=== PATIENT | female | born 1960 | race Caucasian/White ===

== ENCOUNTER 2019-04-08 22:20 | Emergency (ER) | payer OTHER, SELFPAY ==
--- NOTE | ~2019-04-08 | XR_ITS ---
EXAMINATION: XR chest 1V portable EXAM DATE: 04/08/2019 23:23 INDICATION: Confusion. Altered mental status. Recent cold. TECHNIQUE: Portable AP frontal chest x-ray was obtained. Comparison is made to prior examination from 11/01/2014. FINDINGS: The lungs are clear. There are no pleural effusions. Cardiomediastinal silhouette is norm al. There is no pneumothorax suspected. There is mild to moderate bilateral acromioclavicular join t primary osteoarthritis. IMPRESSION: Unremarkable chest x-ray exam. Reviewed, dictated and finalized at location A. ICAL MASSAGE THERAPIST
--- NOTE | ~2019-04-08 | CT_ITS ---
EXAMINATION: CT cervical spine wo con EXAM DATE: 04/08/2019 23:22 INDICATION: Fall, head injury. TECHNIQUE: Spiral CT of the cervical spine was performed without contrast. Axial images were reviewe d. Coronal and sagittal reformatted images were also reviewed. The dose-length product (DLP) for thi s examination was 155.67 mGy-cm. The exposure was tailored according to patient size (auto mA exposu re control), and iterative reconstruction (ASIR) was used as additional dose reduction technique. Th ere is no prior study for comparison. FINDINGS: Advanced left facet arthropathy C2-5. There is no evidence of acute cervical fracture. Th e odontoid process is intact. Pre-dens space is normal. Prevertebral soft tissue is normal. There are no soft tissue abnormalities identified. There is no disc space widening or traumatic vertebral body subluxation suspected. C5-6 disc replacement. Moderate disc disease at C6-7, mild at C4-5. Left -sided neural foraminal stenosis at C3-4 and 4-5. A detailed level by level evaluation of spondylosi s can be added as addendum if requested. IMPRESSION: 1. No acute cervical fracture. 2. Hardware, spondylosis. Reviewed, dictated and finalized at location A. ING DECORATOR
--- NOTE | ~2019-04-08 | CT_ITS ---
EXAMINATION: CT brain wo con EXAM DATE: 04/08/2019 23:22 INDICATION: Fall. Head injury. Confusion. TECHNIQUE: Spiral CT of the head was performed without contrast. Axial, coronal and sagittal images were reviewed. The dose-length product (DLP) for this examination was 605.33 mGy-cm. The exposure w as tailored according to patient size, and iterative reconstruction (ASIR) was used as additional dos e reduction technique. Comparison is made to prior examination from 03/22/2005. FINDINGS: There is no acute intraparenchymal hemorrhage. No evidence of intraparenchymal brain mass lesion. No evidence of acute infarction. There is no mass effect or midline shift. The ventricles are normal in size. There are no extra-axial collections. There are no acute calvarial fractures. T he orbits are unremarkable. Soft tissue is unremarkable. There is moderate to large amount of fluid in the right sphenoid sinus. There is mild to moderate sphenoid and ethmoid mucoperiosteal thickenin g. Mastoid air cells are well aerated. IMPRESSION: 1. No acute intracranial findings. 2. Right sphenoid fluid. Possible sinusitis. Reviewed, dictated and finalized at location A. STERED NURSE RENAL
[2019-04-08 22:20] VITALS: BP 106/75; PULSE 97; RESP 22; TEMP 36.3; O2SAT 94
--- NOTE | 2019-04-08 22:25 | ED.AMS ---
HPI - Altered Mental Status General Chief Complaint: Altered Mental Status Stated Complaint: altered level cons. Time Seen by Provider: 04/08/19 22:20 Source: family, EMS and RN notes reviewed Mode of arrival: EMS Limitations: intoxication History of Present Illness HPI narrative: Pt is a 59 y/o female who presents to the ED, via EMS from home, with c/o decreased responsiveness that began earlier tonight. Per EMS, pt was found unresponsive on the floor in her office. Pt's spouse states pt has a tendency to drink and has a hx of alcohol abuse. Pt's spouse has been sick and in bed all day. Pt's spouse found the pt on the floor. Pt reports drinking a bottle of vodka, but then later denies drinking EtOH. Per EMS, pt is code stroke negative, but she does have slurred speech. Per pt's spouse, pt had a fever in the 101s this weekend and he states that she last had a fever on Sunday (04/06/19). He states he last saw the pt around 7:30 PM and he states that she seemed fine. He denies the pt receiving a flu shot this year. Pt's spouse states he could not get much out of her while trying to talk to her. Pt's spouse also reports the pt having a cough and rhinorrhea, but denies suicidal ideation. HPI is limited due to pt's intoxication. complaint: decreased responsiveness Onset (ago): hour(s) Context: alcohol abuse Associated symptoms: cough and other (rhinorrhea, slurred speech) Related Data Allergies Allergy/AdvReac Type Severity Reaction Status Date / Time Penicillins Allergy Mild Hives / Verified 04/01/19 09:47 Red Face prochlorperazine AdvReac Mild Hyperactive Verified 04/01/19 09:47 Review of Systems Review of Systems: ROS unobtainable: other (limited due to pt's intoxication) Constitutional: Constitutional: Denies fever(s) ENT: Reports other (rhinorrhea) Respiratory: Respiratory: Reports cough Neurologic: Reports Abnormal speech present (slurred) and Reports other (decreased level of consciousness) Psychiatric: Psychiatric: Denies suicidal ideation [facility] Past Medical History Medical History (Updated 04/09/19 @ 00:36 by Arlene Reyes MD) Alcohol abuse Depression Essential (primary) hypertension History of vaginal delivery x3 Mixed hyperlipidemia Vitamin deficiency, unspecified Surgical History Surgical History (Updated 04/08/19 @ 22:44 by Griselda Zacarias) History of back surgery History of dilation and curettage History of endometrial ablation Hx of appendectomy Hx of reduction mammoplasty Social History Social History Smoking status: Never smoker Second hand tobacco smoke exposure: Yes Alcohol intake: current Exam Narrative: Exam Narrative: GENERAL: Well-appearing, well-nourished, and in no acute distress. HEAD: Normocephalic, atraumatic EYES: PERRLA and EOMI, conjunctiva clear without discharge EARS: TM's clear bilaterally without erythema or dullness NOSE: Nares clear, no rhinorrhea or epistaxis THROAT:Mucous membranes moist, Oropharynx normal without erythema, exudate, peritonsillar swelling or fluctuance NECK: Supple, without lymphadenopathy or mass RESPIRATORY: No respiratory distress, Airway patent, Respirations non-labored, Clear to auscultation without rales, rhonchi or wheeze HEART: Regular rate and rhythm. No murmur heard. Normal peripheral pulses. ABDOMEN: Soft, nontender, nondistended, normal active bowel sounds. No masses. No rebound or guarding, No organomegaly. EXTREMITIES: No edema, normal strength with full range of motion. SKIN: Warm, dry, normal color without rash NEURO: Alert and oriented to person only. Slurred speech. CN 2-12 grossly intact. No focal deficits. PSYCH: Normal mood and affect. Course Reevaluation(s) Reevaluation #1: Patient is now able to answer all questions. Her speech is no longer slurred. I have discussed with her and patient has alcohol intoxication. Date: 04/09/19 Ti
--- NOTE | 2019-04-08 22:27 | ECG_ITS ---
Measurements Intervals [place] Rate: 90 P: 58 ME: 197 QRS: 12 QRSD: 78 T: 43 QT: 366 QTc: 448 Interpretive Statements SINUS RHYTHM INCOMPLETE RIGHT BUNDLE BRANCH BLOCK BASELINE ARTIFACT- I, II, AVR, AVL, AVF, V1-V6 BORDERLINE ECG Electronically Signed On 04-09-2019 6:59:28 DOGGER by Chato Bello D.O.
[2019-04-08] MEDS: SODIUM CHLORIDE 0.9% IV 1,000 ML 999 ML IV CONT (22:31)
[2019-04-08 22:47] LABS: Glucose Point of Care 99 (65-105)
[2019-04-08 22:56] LABS: Alveolar/Arterial O2 Gradient 41.3 mmHg; Base Excess ABG -2.9 mEq/l (+/-2.0); Carboxyhemoglobin 0.3 % THb (0-2.0); Fractional Inspired Oxygen 21 %; HCO3 ABG 21.5 mEq/l (22.0-26.0); Methemoglobin ABG 0.2 %THb (0-1.5); Oxygen Saturation ABG 92.9 % (95.0-100.0); PCO2 ABG 36.1 mmHg (35.0-45.0); PO2 ABG 65.2 mmHg (80.0-100.0); Reduced Hemoglobin 10.5 %THb (0-5.0); pH ABG 7.393 (7.350-7.450)
[2019-04-08 22:57] LABS: Modified Allen's Test Pass; Site Drawn RIGHT RADIAL
[2019-04-08 23:17] LABS: Immature Reticulocyte Fraction 6.8 % (3.0-15.9); Lactic Acid Reflex 1.1 mmol/L (0.7-2.1); Reticulocyte Hemoglobin Conten 33.3 pg (28.2-35.7); Reticulocyte Percent 1.14 % (0.7-4.3); Reticulocytes Absolute 0.04 B/L (32.2-175.7)
[2019-04-08 23:19] LABS: Add Urine Microscopic? NO; Appearance Urine Clear (Clear); Bilirubin Urine Negative (Negative); Blood Urine Negative (Negative); Color Urine Straw (Yellow); Glucose Urine UA Negative (Negative); Ketones Urine Negative (Negative); Leukocyte Esterase Ur Negative LEU/UL (Negative); Nitrate Urine Negative (Negative); Protein Urine Negative (Negative); Specific Grav Ur 1.005 (1.001-1.035); Urobilinogen Urine Negative mg/dL (<2.0)
[2019-04-08 23:19] LABS: Ammonia < 9 umol/L (9-30)
[2019-04-08 23:27] LABS: Basophils Percent Auto 0.7 % (0.2-1.2); Eosinophils Absolute Auto 0.1 K/mm3 (0-0.3); Eosinophils Percent Auto 1.5 % (0-4.4); Hemoglobin 12.3 g/dL (12.0-15.0); Immature Granulocyte Absolute 0.02 K/mm3 (0.00-0.031); Immature Granulocyte Percent A 0.3 % (0-0.5); Lymphocytes Absolute Auto 2.16 K/mm3 (0.9-3.2); Lymphocytes Percent Auto 36.2 % (18.3-44.2); Mean Corpuscular HGB Conc 33.2 g/dl (32-36); Mean Corpuscular Hemoglobin 31.8 pg (26-34); Mean Corpuscular Volume 95.6 fl (80-100); Mean Platelet Volume 9.8 fl (7.4-10.4); Monocytes Absolute Auto 0.5 K/mm3 (0.1-0.6); Monocytes Percent Auto 8.1 % (2.6-8.5); Neutrophils Absolute Auto 3.2 K/mm3 (1.3-6.7); Neutrophils Percent Auto 53.2 % (45.5-73.1); Platelet Count Result 288 k/mm3 (150-375); Red Blood Count 3.87 M/mm3 (4.2-5.4); Red Cell Distribution Width 12.6 % (11.5-14.5)
[2019-04-08 23:29] LABS: Benzodiazepines Screen Urine Negative (Negative)
[2019-04-08 23:33] LABS: Amphetamine Screen Urine Negative (Negative); Cannabinoid Screen Urine Negative (Negative); Cocaine Screen Urine Negative (Negative); Methadone Screen Urine Negative (Negative); Opiate Screen Urine Negative (Negative); Phencyclidine Screen Urine Negative (Negative)
[2019-04-08 23:34] LABS: Ethanol 322 mg/dL (<10)
[2019-04-08 23:35] VITALS: BP 103/59; PULSE 91; RESP 21; O2SAT 94
[2019-04-08 23:36] LABS: Barbiturate Screen Urine Negative (Negative)
[2019-04-09 00:05] LABS: Magnesium 2.1 mg/dL (1.6-2.3)
[2019-04-09 00:06] LABS: Alanine Aminotransferase 30 U/L (4-35); Albumin Level 4.1 g/dL (3.5-5.1); Alkaline Phosphatase 94 U/L (38-126); Aspartate Amino Transferase 34 U/L (14-36); Bilirubin,Total 0.2 mg/dL (0.2-1.3); Blood Urea Nitrogen 4 mg/dL (7-17); Calcium 8.5 mg/dL (8.4-10.2); Carbon Dioxide 26 mmol/L (22-30); Chloride 105 mmol/L (98-107); Estimated Glomerular Filt Rate > 60; Glucose 101 mg/dL (65-105); Partial Thromboplastin Time 28.6 SECONDS (22.3-36.8); Potassium 3.7 mmol/L (3.4-5.0); Prothrombin Time 12.8 Seconds (11.1-14.7); Sodium 146 mmol/L (137-145)
[2019-04-09 00:17] LABS: Troponin I < 0.012 ng/mL (0.000-0.034)
[2019-04-09 00:30] VITALS: BP 99/73; PULSE 91; RESP 20; O2SAT 98
[2019-04-09 01:43] VITALS: BP 105/77; PULSE 95; RESP 19; TEMP 37.1; O2SAT 94
== END 2019-04-09 01:45 | disposition home or self-care (01) ==
PROVIDERS: Emergency Provider General Practice; PCP Internal Medicine
DX: F10.129 Alcohol abuse with intoxication, unspecified (principal); Y90.8 Blood alcohol level of 240 mg/100 ml or more; E78.2 Mixed hyperlipidemia; I10 Essential (primary) hypertension; E56.9 Vitamin deficiency, unspecified; I45.10 Unspecified right bundle-branch block; M47.812 Spondylosis without myelopathy or radiculopathy, cervical region
CPT/HCPCS: 36415; 36600; 51701; 70450; 71045; 72125; 80053; 80307; 81003; 81025; 82140; 82375; 82805; 82948; 83050; 83605; 83735; 84484; 85025; 85046; 85610; 85730; 87804; 93005; 96361; 96365; 99284; J3411; J3475; J7030; J7121

== ENCOUNTER 2020-03-05 07:39 | Outpatient (CLI) | payer OTHER, SELFPAY ==
--- NOTE | ~2020-03-05 | MM_ITS ---
EXAMINATION: MM screening henrik BI w daniel HISTORY: Screening TECHNIQUE: Craniocaudal and mediolateral oblique 3-D tomosynthesis images were obtained and synthetic 2-D images were generated. CAD analysis was submitted and interpreted. COMPARISON: Comparison to multiple prior studies sequentially, with oldest reviewed study dated 11/05. BREAST PARENCHYMAL COMPOSITION: The breasts are heterogeneously dense, which may obscure small masses . FINDINGS: There is no evidence of suspicious mass, calcification, or architectural distortion to sugg est malignancy in either breast. There has been no suspicious interval change. IMPRESSION: 1. No mammographic evidence of malignancy. 2. Recommend routine screening mammography in one year. BI-RADS Category 1: Negative Reviewed, dictated and finalized at location A. CLE REPAIRMAN
== END 2020-03-05 07:40 | disposition home or self-care (01) ==
LOC: ANHIMG 07:41
PROVIDERS: PCP Internal Medicine; Visit Provider Obstetrics & Gynecology
DX: Z12.31 Encounter for screening mammogram for malignant neoplasm of breast (principal)
CPT/HCPCS: 77063; 77067

== ENCOUNTER 2020-06-25 12:33 | Outpatient (CLI) | payer OTHER, SELFPAY ==
--- NOTE | ~2020-06-25 | DEXA_ITS ---
Bone Density Report Name: Denae Jack Age: 60 Sex: Female Ethnicity: White Date of : 1960 Indication: osteopenia; monitoring treatment; parental hip fracture; Referring Provider: RAYMUNDO SIM Study: Bone densitometry was performed. Exam Date: June 25, 2020 Accession number: [id number] Bone Density: Region BMD T-score Z-score Classification AP Spine (L1-L4) 1.065 0.2 1.5 Normal Femoral Neck (Left) 0.546 -2.7 -1.5 Osteoporosis Total Hip (Left) 0.780 -1.3 -0.5 Osteopenia Total Hip Bilateral Avg 0.770 -1.4 -0.6 Osteopenia Femoral Neck (Right) 0.563 -2.6 -1.4 Osteoporosis Total Hip (Right) 0.759 -1.5 -0.6 Osteopenia World Health Organization criteria for BMD impression classify patients as: Normal (T-score at or above -1.0), Osteopenia (T-score between -1.0 and -2.5), or Osteoporosis (T-score at or below -2.5). 10-year Fracture Risk: FRAX not reported because: Some T-score for Spine Total or Hip Total or Femoral Neck at or below -2.5 Treated for osteoporosis Previous Exams: Region Exam Age BMD T-score BMD Change BMD Change Date g/cm2 vs Baseline vs Previous AP Spine(L1-L4) 06/25/2020 60 1.065 0.2 -0.073(-6.4%)* 0.020(1.9%) 01/11/2018 57 1.045 0.0 -0.092(-8.1%)* -0.092(-8.1%)* 12/17/2015 55 1.137 0.8 Total Hip(Left) 06/25/2020 60 0.780 -1.3 -0.006(-0.8%) -0.004(-0.5%) 01/11/2018 57 0.783 -1.3 -0.002(-0.3%) -0.002(-0.3%) 12/17/2015 55 0.786 -1.3 Total Hip(Right) 06/25/2020 60 0.759 -1.5 -0.008(-1.0%) 0.006(0.8%) 01/11/2018 57 0.753 -1.5 -0.013(-1.7%) -0.013(-1.7%) 12/17/2015 55 0.767 -1.4 *Denotes significance at 95% confidence level, LSC for AP Spine = 0.022 g/cm2, LSC for Total Hip = 0.027 g/cm2 Clinical Information Provided by Patient: Parent has had a hip fracture Is being treated for osteoporosis Has used the following medications: Boniva (i.e. ibandronate), Vitamin D, Calcium Patient maximum height was 59 Menopause Age: 52 Drinks caffeinated beverages Onset of menses at age 15 Number of children 3 Impression: The patient has osteoporosis, based on the Left Femoral Neck T-score. The patient has risk factors, including: parental hip fracture. No significant bone loss was observed. Discussion: PATIENT UNDER TREATMENT WITH NO SIGNIFICANT BMD LOSS SINCE LAST EXAM. In an untreated patient, BMD typically declines with age. A lack of decline or gain is usually a sign that tr
== END 2020-06-25 12:34 | disposition home or self-care (01) ==
LOC: ANHIMG 12:36
PROVIDERS: PCP Internal Medicine; Visit Provider Obstetrics & Gynecology
DX: Z78.0 Asymptomatic menopausal state (principal); M81.0 Age-related osteoporosis without current pathological fracture; M85.852 Other specified disorders of bone density and structure, left thigh; M85.851 Other specified disorders of bone density and structure, right thigh
CPT/HCPCS: 77080

== ENCOUNTER → 2021-03-02 02:09 | Outpatient (CLI) | payer OTHER, SELFPAY ==
[2021-03-02 19:36] LABS: SARS-CoV-2 RNA PCR Negative
== END ==
PROVIDERS: PCP Internal Medicine; Visit Provider Internal Medicine
DX: Z20.822 Contact with and (suspected) exposure to COVID-19 (principal)
CPT/HCPCS: C9803; U0003; U0005

== ENCOUNTER → 2021-04-29 13:00 | Outpatient (CLI) | payer OTHER, SELFPAY ==
--- NOTE | ~2021-04-29 | XR_ITS ---
XR chest 2V DATE: 04/29/2021 13:35 INDICATION: Pneumonia TECHNIQUE: PA and lateral views COMPARISON: 04/08/2019 portable AP chest FINDINGS: Normal heart size. No hilar or mediastinal enlargement. Minimal bibasilar atelectasis is suggested. No pulmonary infiltrate or consolidation, pleural effusion or pulmonary vascular congestion or pneumo thorax is noted otherwise. Interbody spinal fusion at C6-7. IMPRESSION: Minimal bibasilar atelectasis Reviewed, dictated and finalized at location A.
== END ==
PROVIDERS: Visit Provider Internal Medicine
DX: J18.9 Pneumonia, unspecified organism (principal)
CPT/HCPCS: 71046

== ENCOUNTER 2021-05-06 07:47 | Outpatient (CLI) | payer OTHER, SELFPAY ==
--- NOTE | ~2021-05-06 | US_ITS ---
EXAMINATION: US abdomen limited EXAM DATE: 05/06/2021 08:54 INDICATION: R79.89 - Other specified abnormal findings of blood chemi... TECHNIQUE: Multiple grayscale and Doppler images of the abdomen right upper quadrant were obtained (b y a technologist who performed the scan) and subsequently reviewed. Comparison is made to prior exami nation from 03/29/2007. FINDINGS: The pancreatic head and body are normal in appearance. The pancreatic tail is not visualized. The l iver has normal echogenicity and contour. There are no focal liver lesions identified. There is no evidence of intrahepatic biliary duct dilation. Portal venous flow was seen in the hepatopedal, nor mal direction and has normal Doppler waveform. No right-sided hydronephrosis. Common bile duct measures 4 mm, which is normal. The gallbladder wall is normal in thickness, with ex pected amount of distention. No sonographic evidence of pericholecystic fluid. There is no cholelit hiases. Technologist performing exam reports patient did not demonstrate sonographic Serra's sign. Please note that this sign is less reliable in patients who have received pain medication. IMPRESSION: 1. Unremarkable abdominal ultrasound exam. Reviewed, dictated and finalized at location D.
== END 2021-05-06 07:48 | disposition home or self-care (01) ==
LOC: ANHIMG 07:52
PROVIDERS: PCP Internal Medicine; Visit Provider Internal Medicine
DX: R79.89 Other specified abnormal findings of blood chemistry (principal)
CPT/HCPCS: 76705

== ENCOUNTER 2021-05-21 09:21 | Outpatient (CLI) | payer OTHER, SELFPAY ==
--- NOTE | ~2021-05-21 | MM_ITS ---
EXAMINATION: MM screening henrik BI w daniel HISTORY: Screening mammogram TECHNIQUE: Craniocaudal and mediolateral oblique 3-D tomosynthesis images were obtained and synthetic 2-D images were generated. CAD analysis was submitted and interpreted. COMPARISON: 03/05/2020, 06/15/2017, 03/19/2015 bilateral screening mammogram examinations BREAST PARENCHYMAL COMPOSITION: The breasts are heterogeneously dense, which may obscure small masses . FINDINGS: There is no evidence of suspicious mass, calcification, or architectural distortion to sugg est malignancy in either breast. There has been no suspicious interval change. IMPRESSION: 1. No mammographic evidence of malignancy. 2. Recommend routine screening mammography in one year. BI-RADS Category 1: Negative Reviewed, dictated and finalized at location A.
== END 2021-05-21 09:22 | disposition home or self-care (01) ==
PROVIDERS: PCP Internal Medicine; Visit Provider Obstetrics & Gynecology
DX: Z12.31 Encounter for screening mammogram for malignant neoplasm of breast (principal)
CPT/HCPCS: 77063; 77067

== ENCOUNTER 2022-08-11 07:35 | Outpatient (CLI) | payer OTHER, SELFPAY ==
--- NOTE | ~2022-08-11 | MM_ITS ---
EXAMINATION: MM screening henrik BI w daniel HISTORY: Screening mammogram, family history of breast cancer in her mother. TECHNIQUE: Craniocaudal and mediolateral oblique 3-D tomosynthesis images were obtained and synthetic 2-D images were generated. CAD analysis was submitted and interpreted. COMPARISON: 05/21/2021, 03/05/2020, 06/15/2017 BREAST PARENCHYMAL COMPOSITION: The breasts are heterogeneously dense, which may obscure small masses . FINDINGS: No suspicious mass, calcification, or architectural distortion are identified in either abelino ast to suggest malignancy. There has been no suspicious interval change. IMPRESSION: 1. No mammographic evidence of malignancy. 2. Recommend routine screening mammography in one year. BI-RADS Category 1: Negative Reviewed, dictated and finalized at location A.
--- NOTE | ~2022-08-11 | DEXA_ITS ---
Bone Density Report Name: FOZIA ALDRIDGE Age: 62 Sex: Female Ethnicity: White Date of : 1960 Indication: osteopenia; monitoring treatment; postmenopausal; asthma or emphysema; Referring Provider: RAYMUNDO SIM Study: Bone densitometry was performed. Exam Date: August 11, 2022 Accession number: [id number] Bone Density: Region BMD T-score Z-score Classification AP Spine(L1-L4) 1.087 0.4 1.8 Normal Femoral Neck (Left) 0.510 -3.1 -1.8 Osteoporosis Total Hip (Left) 0.734 -1.7 -0.7 Osteopenia Femoral Neck (Right) 0.562 -2.6 -1.3 Osteoporosis Total Hip (Right) 0.728 -1.8 -0.8 Osteopenia Total Hip Mean 0.731 -1.8 -0.8 Osteopenia World Health Organization criteria for BMD impression classify patients as: Normal (T-score at or above -1.0), Osteopenia (T-score between -1.0 and -2.5), or Osteoporosis (T-score at or below -2.5). 10-year Fracture Risk: FRAX not reported because: Some T-score for Spine Total or Hip Total or Femoral Neck at or below -2.5 Treated for osteoporosis Previous Exams: Region Exam Age BMD T-score BMD Change BMD Change Date g/cm2 vs Baseline vs Previous AP Spine (L1-L4) 08/11/2022 62 1.087 0.4 -0.050 (-4.4%) 0.022 (2.1%) 06/25/2020 60 1.065 0.2 -0.073 (-6.4%) 0.020 (1.9%) 01/11/2018 57 1.045 0.0 -0.092 (-8.1%) -0.092 (-8.1%) 12/17/2015 55 1.137 0.8 Total Hip(Left) 08/11/2022 62 0.734 -1.7 -0.051 (-6.6%) -0.045 (-5.8%) 06/25/2020 60 0.780 -1.3 -0.006 (-0.8%) -0.004 (-0.5%) 01/11/2018 57 0.783 -1.3 -0.002 (-0.3%) -0.002 (-0.3%) 12/17/2015 55 0.786 -1.3 Total Hip(Right) 08/11/2022 62 0.728 -1.8 -0.039 (-5.0%) -0.031 (-4.1%) 06/25/2020 60 0.759 -1.5 -0.008 (-1.0%) 0.006 (0.8%) 01/11/2018 57 0.753 -1.5 -0.013 (-1.7%) -0.013 (-1.7%) 12/17/2015 55 0.767 -1.4 *Denotes significance at 95% confidence level, LSC for AP Spine = 0.022 g/cm2, LSC for Total Hip = 0.027 g/cm2 Clinical Information Provided by Patient: Is being treated for osteoporosis Has used the following medications: Boniva (i.e. ibandronate), Vitamin D Has the following medical conditions: Asthma or Emphysema Patient maximum height was 58 Menopause Age: 53 Drinks caffeinated beverages Onset of menses at age 14 Number of children 3 Impression: The patient has osteoporosis, based on the Left Femoral Neck T-score. The BMD for the Total Hip(Left) decreased, changing by -5
== END 2022-08-11 07:36 | disposition home or self-care (01) ==
LOC: ANHIMG 07:38
PROVIDERS: PCP Family Medicine; Visit Provider Obstetrics & Gynecology
DX: Z12.31 Encounter for screening mammogram for malignant neoplasm of breast (principal); M81.0 Age-related osteoporosis without current pathological fracture; M85.852 Other specified disorders of bone density and structure, left thigh; M85.851 Other specified disorders of bone density and structure, right thigh
CPT/HCPCS: 77063; 77067; 77080

== ENCOUNTER 2024-01-09 07:44 | Outpatient (CLI) | payer OTHER, SELFPAY ==
--- NOTE | ~2024-01-09 | MM_ITS ---
EXAMINATION: MM screening henrik BI w daniel HISTORY: Screening TECHNIQUE: Craniocaudal and mediolateral oblique 3-D tomosynthesis images were obtained and synthetic 2-D images were generated. CAD analysis was submitted and interpreted. COMPARISON: Comparison to multiple prior studies sequentially, with oldest reviewed study dated . . BREAST PARENCHYMAL COMPOSITION: Dense: The breasts are heterogeneously dense, which may obscure small masses FINDINGS: There are changes of bilateral previous breast reduction surgery. There is no evidence of s uspicious mass, calcification, or architectural distortion to suggest malignancy in either breast. Th ere has been no suspicious interval change. IMPRESSION: 1. No mammographic evidence of malignancy. 2. Recommend routine screening mammography in one year. BI-RADS Category 1: Negative Reviewed, dictated and finalized at location B. MODELING SPECIALIST
== END 2024-01-09 07:45 | disposition home or self-care (01) ==
LOC: ANHIMG 07:46
PROVIDERS: PCP Nurse Practitioner Family; Visit Provider Nurse Practitioner Family
DX: Z12.31 Encounter for screening mammogram for malignant neoplasm of breast (principal)
CPT/HCPCS: 77063; 77067

== ENCOUNTER 2024-09-19 00:12 | Day surgery (SDC) | payer OTHER, SELFPAY ==
[2024-09-02 13:06] VITALS: BMI 24.0
--- OUTSIDE RECORDS SUMMARY | 2024-09-19 00:16 | XMS_ITS | Clinical Summary ---
Author Organization [facility] Address [facility] [place] [address] Care Team Providers Care Feeder Loader Name Role Phone Kadeem Tamayo MD Primary Care Provider [phone] Allergies Active Allergy Reactions Criticality Noted Date Comments Penicillins Hives Medium 06/09/2024 Medications amLODIPine (NORVASC) 10 mg tablet Take 1 tablet (10 mg total) by mouth daily Active triamterene-hyd roCHLOROthiazid e 37.5-25 mg per tablet/capsule Take 1 tablet/capsu le by mouth daily Active rosuvastatin (CRESTOR) 10 mg tablet Take 1 tablet (10 mg total) by mouth daily Active DULoxetine DR (CYMBALTA) 60 mg capsule Take 1 capsule (60 mg total) by mouth daily Active cetirizine (ZyrTEC) 10 mg tablet Take 1 tablet (10 mg total) by mouth daily Active ipratropium/alb uterol sulfate (IPRATROPIUM-AL BUTEROL INHAL) Inhale 90 mcg as needed Active calcium carbonate (CALCIUM 600 ORAL) Take 600 mg by mouth daily Active Active Problems No known active problems Family History Medical History Relation Name Comments Broken bones Mother Relation Name Status Comments Mother Social History Tobacco Use Types Packs/Day Years Used Date Smoking Tobacco: Never Passive Smoke Exposure: Never Smokeless Tobacco: Never Tobacco Cessation:Counseling Given: Not Answered Comments Unknown Sex and Gender Information Value Date Recorded Sex Assigned at Not on file Legal Sex Female 9:57 AM REPAIR SUPERVISOR Gender Identity Not on file Sexual Orientation Not on file Obstetrics History Last Filed Vital Signs Vital Sign Reading Time Taken Comments Blood Pressure - - Pulse - - Temperature - - Respiratory Rate - - Oxygen Saturation - - Inhaled Oxygen Concentration - - Weight 54.9 kg (121 lb 1.6 oz) 06/09/2024 8:25 A M CDT Height 149.9 cm (4' 11) 06/09/2024 8:25 AM CDT Body Mass Index 24.46 06/09/2024 8:25 AM CDT Plan of Treatment Health Maintenance Due Date Last Done Comments Breast Cancer Screening-Mammogram 1960 Cervical Cancer Screening 1960 Colon Cancer Screening-Colonoscopy 1960 Depression Screening 1960 Hepatitis C Screening 1960 Hepatitis B Screening 1980 Regular Well Visit/Exam 18-64 1980 Covid-19 Vaccine ( season) 2023 02/11/2021, 04/25/2020, 04/04/2020 Influenza Vaccine (#1) 2024 , 12/08/2022, 01/07/2022, Additional history exists DTaP/Tdap/Td Vaccine (3 - Td or Tdap) 10/04/2031 10/03/2021, 12/07/2014 Zoster Vaccine Completed 03/31/2022, 11/11/2021 Pneumococcal vaccine <65 Aged Out 05/11/2023 No longer eligible based on patient's age to complete this topic [place] [address] [facility] CHOICE PLUS Care Teams Feeder Loader Relationship Specialty Start Date End Date Kadeem Tamayo MD [address] [place] [address] PCP - General Obstetrics and Gynecology 06/09/24
--- OUTSIDE RECORDS SUMMARY | 2024-09-19 00:16 | XMS_ITS | Patient Health Record ---
Author Organization [facility] Address [address] [place], [place] [id number] Care Team Providers Care Laborer Golf Course Name Role Phone DEBORA MOTT Unavailable [phone] Barry Parmar Unavailable Unavailable Reason For Referral No Information Plan Of Treatment No Information Insurance Providers Payer Name Payer Address Payer Phone Subscriber Number Group Number Insured Name Patient Relationship to Insured Coverage Start Date Coverage End Date [place] [employer] [facility] [address] [address] [place], [place] [id number] FOZIA ALDRIDGE Self - patient is the insured
--- OUTSIDE RECORDS SUMMARY | 2024-09-19 00:16 | XMS_ITS | Clinical Summary ---
Author Organization [facility] Address [address] [place] [address] Phone Care Team Providers Care Building Coordinator Name Role Phone Unavailable Primary Care Provider Unavailabl e Allergies Active Allergy Reactions Criticality Noted Date Comments Penicillins Hives High 04/09/2023 Medications valACYclovir (VALTREX) 1 gram tablet Take 1 Tablet by mouth every 12 hours for 7 days. 14 Tablet 04/09/2023 3:17 PM PLASTIC SHAPER 04/09/2023 Active rosuvastatin (CRESTOR) 10 mg tablet Take 1 Tablet (10 mg) by mouth daily. 90 Tablet 1 09/13/2023 7:35 PM CDT 04/09/2023 Active Encounters Date Type Department Care Team Description 09/09/2024 External Device Data [facility] ABSTRACTION Provider, Abstract 07/29/2024 External Device Data [facility] ABSTRACTION Provider, Abstract 07/01/2024 External Device Data [facility] ABSTRACTION Provider, Abstract 06/25/2024 External Device Data [facility] ABSTRACTION Provider, Abstract 06/24/2024 External Device Data [facility] ABSTRACTION Provider, Abstract from Last 3 Months Social History Tobacco Use Types Packs/Day Years Used Date Smoking Tobacco: Never Assessed Comments Unknown Sex and Gender Information Value Date Recorded Sex Assigned at Not on file Legal Sex Female 12:12 PM CDT Gender Identity Not on file Sexual Orientation Not on file Plan of Treatment Health Maintenance Due Date Last Done Comments DTAP/TDAP/TD VACCINES (1 - Tdap) 1981 HPV/Cotest (21-29) 1983 CERVICAL CANCER SCREENING 1992 HPV/Cotest (30-65) 1992 PAP SMEAR 1992 BREAST CANCER SCREENING 2002 COLORECTAL SCREENING 2007 Colorectal Cancer Screening 2007 FIT-DNA Q 3 years 2007 FIT/FOBT Q 1 year 2007 Flex Sig/CT Colonography Q 5 years 2007 ZOSTER VACCINE (1 of 2) 2012 INFLUENZA VACCINE (#1) 2024 RSV VACCINE (60+ or ) (1 - 1-dose 75+ series) 2037 Insurance RX [employer] Member Subscriber Plan / Payer (Ef fective 2023-Present) Name:Denae Jack Relation to Subscriber:Self Name:Denae Jack Subscriber ID:Not on file Payer ID:Not on file Group ID:[id number] Type:RX Commercial Address: [address]
--- OUTSIDE RECORDS SUMMARY | 2024-09-19 00:16 | XMS_ITS | Continuity of Care Document ---
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 [address] , [place], [place], [id number], [place]. tel:[phone] Referring Provider: Nicolas Martinez, [address], [place], [address]. tel:[phone] Family History Family Member Type Diagnosis Age At Onset No Information Payers Payer name Insurance type Covered libertarian ID Authoriza tion(s) [employer] INACTIVE OUT OF STATE [id number] Social History Type Description Quantity Date Captured Comments Sex Female Smoking Status No Information Chief Complaint And Reason For Visit No Information Reason For Referral Reason For Referral No Information History Of Present Illness Encounter Date Complaint History Of Prese nt Illness No Information Functional Status Date Functional Assessmen t No Information Instructions Date Instruction Additional Infor mation No Information Assessments Type Assessment Date No Information Patient Care Teams Name Effective Dates (start - stop) Status Members No Information
[2024-09-19 06:44] VITALS: BP 138/79; PULSE 96; RESP 18; TEMP 36.8; O2SAT 99; BMI 23.8
[2024-09-19] MEDS: LACTATED RINGERS 1,000 ML 150 ML IV CONT (06:52)
--- NOTE | 2024-09-19 07:23 | WPDANESEPPF ---
Anes - Initial Pre Proc Eval Procedure: Operation Date: 09/19/24 08:00 Proposed Procedures p Screening Colonoscopy - Obinna Salinas MD Date/Time: 09/19/24 07:23 Surgeon: Obinna Salinas MD Pre Op Diagnosis: Screening Patient Data Age: 64 Gender: F Height: 1.5 m Weight: 53.5 kg Last Vital Signs Temp 98.3 F 09/19/24 06:44 Pulse 96 09/19/24 06:44 Resp 18 09/19/24 06:44 BP 138/79 09/19/24 06:44 Pulse Ox 99 09/19/24 06:44 O2 Del Method Room Air 09/19/24 06:44 Allergies Allergy/AdvReac Type Severity Reaction Status Date / Time Penicillins Allergy Mild Hives / Verified 09/19/24 06:43 Red Face prochlorperazine AdvReac Mild Hyperactive Verified 09/19/24 06:43 Home Medications ?Medication ?Instructions ?Recorded ?Confirmed ?Type wkvcovws-zcpgsbn-vfjc-lutein tablet 1 tablet PO DAILY 10/28/21 09/19/24 History calcium carbonate (Calcium 500) 500 mg PO DAILY 08/22/23 09/19/24 History albuterol sulfate 90 mcg/actuation 2 inh inhalation Q4-6H PRN 11/16/23 09/02/24 Rx aerosol inhaler shortness of breath or wheezing #8.5 grams cetirizine 10 mg tablet (Zyrtec) 10 mg PO DAILY #90 tabs 11/16/23 09/19/24 Rx fluticasone propionate 50 2 spray intranasal DAILY #16 grams 11/16/23 09/19/24 Rx mcg/actuation nasal spray,suspension duloxetine 60 mg capsule,delayed See Rx Instructions .Route 03/04/24 09/19/24 Rx release .COMPLEX #90 caps rosuvastatin 10 mg tablet See Rx Instructions .Route 05/28/24 09/19/24 Rx .COMPLEX #90 tabs amlodipine 10 mg tablet See Rx Instructions .Route 09/02/24 09/19/24 Rx .COMPLEX #90 tabs triamterene 37.5 See Rx Instructions .Route 09/02/24 09/19/24 Rx mg-hydrochlorothiazide 25 mg .COMPLEX #90 caps capsule Patient hx anesthesia problems: none Family hx anesthesia problems: none Results Review: All pre-operative results and documents have been reviewed as part of the pre-operative evaluation. [facility] Past Medical History Medical History Osteopenia Screening for colon cancer Screening for breast cancer Missed x2 Osteoporosis Alcohol abuse Depression History of vaginal delivery x3 Persistent cough for 3 weeks or longer Body mass index (BMI) 22.0-22.9, adult (12/18/17) Body mass index (BMI) 23.0-23.9, adult (09/28/17) Encounter for gynecological examination (general) (routine) without abnormal findings Essential (primary) hypertension Menopause Mixed hyperlipidemia Vitamin deficiency, unspecified Surgical History Surgical History H/O neck surgery Hx of appendectomy History of back surgery Hx of reduction mammoplasty History of dilation and curettage History of endometrial ablation Family History Family History Father Hypertension Family history of coronary artery disease Patient's father is Sibling Family history of elevated blood lipids Hypertension Mother Family history of diabetes mellitus in first degree relative Family history of malignant neoplasm of breast in first degree relative Patient's mother is Grandparent Diabetes mellitus Other Acute myocardial infarction Social History Social History Smoking status: Never smoker Second hand tobacco smoke exposure: Yes Alcohol intake: former Drinks per week: 3 Substance use: never Substance use type: does not use Lack of Transportation: No Lack of Food: Never True Current Housing: I Have Housing Concerned About Future Housing: No Difficulty Paying Gas/Electric Bills: No Difficulty Paying for Meds: No Currently Unemployed: No Education: High School Diploma/GED Difficulty w/ Childcare or Family Care: No Spiritual care concerns: No Anes - Eval Final PreProcedure Day of Procedure 09/19/24 07:23 Patient weight: normal Lungs: normal air movement Airway: Mallampati scale class II Neurological: alert and oriented Last oral intake: >/= 8 hours ASA classification: II Emergent: no Anesthetic plan: proceed Anesthesia type and monitoring: general GIVS and standard monitoring Results Review: All pre-operative results and documents have been reviewed as part of the pre-operative evaluation. HTN, hyperlipidemia. 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 Informed Consent: The patient's anesthetic plan and its attendant risks and benefits were discussed with the patient/family/POA. Questions were solicited and answers provided to the satisfaction of the patient/family/POA.
--- NOTE | 2024-09-19 07:55 | P.HP_ITS ---
H&P: HPI History of Present Illness Date/Time: 09/19/24 07:55 Chief Complaint: Screening colonoscopy Narrative: This is the patient's first colonoscopy. There are no GI symptoms and there is no family history of colorectal cancer. Review of Systems Review of Systems: All systems reviewed & are unremarkable except as noted in HPI and below PMFSH Past Medical History Medical History Osteopenia Screening for colon cancer Screening for breast cancer Missed x2 Osteoporosis Alcohol abuse Depression History of vaginal delivery x3 Persistent cough for 3 weeks or longer Body mass index (BMI) 22.0-22.9, adult (12/18/17) Body mass index (BMI) 23.0-23.9, adult (09/28/17) Encounter for gynecological examination (general) (routine) without abnormal findings Essential (primary) hypertension Menopause Mixed hyperlipidemia Vitamin deficiency, unspecified Surgical History Surgical History H/O neck surgery Hx of appendectomy History of back surgery Hx of reduction mammoplasty History of dilation and curettage History of endometrial ablation Family History Family History Father Hypertension Family history of coronary artery disease Patient's father is Sibling Family history of elevated blood lipids Hypertension Mother Family history of diabetes mellitus in first degree relative Family history of malignant neoplasm of breast in first degree relative Patient's mother is Grandparent Diabetes mellitus Other Acute myocardial infarction Social History Social History (Reviewed 08/28/24 @ 11:17 by Josseline Lund [facility]) Smoking status: Never smoker Second hand tobacco smoke exposure: Yes Alcohol intake: former Drinks per week: 3 Substance use: never Substance use type: does not use Lack of Transportation: No Lack of Food: Never True Current Housing: I Have Housing Concerned About Future Housing: No Difficulty Paying Gas/Electric Bills: No Difficulty Paying for Meds: No Currently Unemployed: No Education: High School Diploma/GED Difficulty w/ Childcare or Family Care: No Spiritual care concerns: No Meds Home Medications and Allergies Home Medications ?Medication ?Instructions ?Recorded ?Confirmed ?Type wbkucipu-rvdjdpx-cfko-lutein tablet 1 tablet PO DAILY 10/28/21 09/19/24 History calcium carbonate (Calcium 500) 500 mg PO DAILY 08/22/23 09/19/24 History albuterol sulfate 90 mcg/actuation 2 inh inhalation Q4-6H PRN 11/16/23 09/02/24 Rx aerosol inhaler shortness of breath or wheezing #8.5 grams cetirizine 10 mg tablet (Zyrtec) 10 mg PO DAILY #90 tabs 11/16/23 09/19/24 Rx fluticasone propionate 50 2 spray intranasal DAILY #16 grams 11/16/23 09/19/24 Rx mcg/actuation nasal spray,suspension duloxetine 60 mg capsule,delayed See Rx Instructions .Route 03/04/24 09/19/24 Rx release .COMPLEX #90 caps rosuvastatin 10 mg tablet See Rx Instructions .Route 05/28/24 09/19/24 Rx .COMPLEX #90 tabs amlodipine 10 mg tablet See Rx Instructions .Route 09/02/24 09/19/24 Rx .COMPLEX #90 tabs triamterene 37.5 See Rx Instructions .Route 09/02/24 09/19/24 Rx mg-hydrochlorothiazide 25 mg .COMPLEX #90 caps capsule Allergies Allergy/AdvReac Type Severity Reaction Status Date / Time Penicillins Allergy Mild Hives / Verified 09/19/24 06:43 Red Face prochlorperazine AdvReac Mild Hyperactive Verified 09/19/24 06:43 Vital Signs Vital Signs - 24 hr 09/19/24 06:44 Temperature 98.3 F Pulse Rate 96 Respiratory Rate 18 Blood Pressure 138/79 Pulse Oximetry 99 Oxygen Delivery Room Air Exam Const: General: cooperative and healthy appearing Resp: Effort & Inspection: normal respiratory effort and able to speak in complete sentences Auscultation: clear to auscultation bilaterally Cardio: Rate: regular rate Rhythm: regular rhythm GI: Inspection: normal to inspection GI Palp: No No hepatosplenomegaly present Auscultation: normal bowel sounds Rectal Exam: deferred Skin: General skin exam: normal color Psych: Appearance: grossly normal Mental Status: mental status grossly normal Assessment and Plan Assessment and plan (1) Encounter for screening colonoscopy: Code(s): Z12.11 - Encounter for screening for malignant neoplasm of colon Status: Acute Assessment and Plan: The patient is deemed a good candidate for the procedure. Consent signed. Will proceed.
[2024-09-19 08:22] VITALS: BP 107/65; PULSE 82; RESP 20; O2SAT 100
[2024-09-19 08:32] VITALS: BP 124/77; PULSE 81; RESP 17; O2SAT 100
[2024-09-19 08:42] VITALS: BP 142/85; PULSE 73; RESP 18; O2SAT 99
== END 2024-09-19 08:48 | disposition home or self-care (01) ==
PROVIDERS: PCP Nurse Practitioner Family; Referring Provider Nurse Practitioner Family; Visit Provider Internal Medicine Gastroenterology
PROC: 0DJD8ZZ Inspection of Lower Intestinal Tract, Via Natural or Artificial Opening Endoscopic (ICD-10-PCS; CPT 45378; principal; 2024-09-19 08:00)
DX: Z12.11 Encounter for screening for malignant neoplasm of colon (principal); I10 Essential (primary) hypertension; E78.2 Mixed hyperlipidemia; M81.0 Age-related osteoporosis without current pathological fracture; F32.A Depression, unspecified; M85.88 Other specified disorders of bone density and structure, other site; E56.9 Vitamin deficiency, unspecified; Z79.51 Long term (current) use of inhaled steroids; Z98.890 Other specified postprocedural states; Z98.1 Arthrodesis status; Z98.891 History of uterine scar from previous surgery; Z80.3 Family history of malignant neoplasm of breast; Z82.49 Family history of ischemic heart disease and other diseases of the circulatory system
CPT/HCPCS: 45378; J2003; J2704; J7120

== ENCOUNTER 2025-01-09 10:02 | Outpatient (CLI) | payer OTHER, SELFPAY ==
--- NOTE | ~2025-01-09 | MM_ITS ---
EXAMINATION: MM screening henrik BI w daniel HISTORY: Screening. TECHNIQUE: Craniocaudal and mediolateral oblique 3-D tomosynthesis images were obtained and synthetic 2-D images were generated. CAD analysis was submitted and interpreted. COMPARISON: 2023, 2022, and 2021 BREAST PARENCHYMAL COMPOSITION: Dense: The breasts are heterogeneously dense FINDINGS: No suspicious masses are seen. There are no suspicious calcifications. No unexplained architectural distortion is seen. There are no skin or nipple abnormalities identified. There is no adenopathy seen on the images submitted. IMPRESSION: No mammographic evidence to suggest malignancy is seen. The patient may return to screening mammography as per ACR guidelines. BI-RADS 1 - Negative. Reviewed, dictated and finalized at location B. OTER
== END 2025-01-09 10:03 | disposition home or self-care (01) ==
LOC: ANHFOHIMG 10:04
PROVIDERS: PCP Nurse Practitioner Family; Visit Provider Nurse Practitioner Family
DX: Z12.31 Encounter for screening mammogram for malignant neoplasm of breast (principal)
CPT/HCPCS: 77063; 77067